=== PATIENT | male | born 2000 | race Caucasian/White ===

== ENCOUNTER → 2023-11-26 | Outpatient (CLI) | payer BC, OTHER ==
[2023-11-26 11:07] LABS: Glucose,Whole Blood 499 mg/dL (70-110)
[2023-11-26 11:26] LABS: Blood Urea Nitrogen 10 mg/dL (9-20)
[2023-11-26 11:28] LABS: African American GFR (CKD) >90 (>60 ml/min/1.73 sqM); Non-African American GFR(CKD) >90 (>60 ml/min/1.73 sqM)
--- NOTE | 2023-11-26 13:38 | CT ---
EXAMINATION TYPE: CT abdomen pelvis w con DATE OF EXAM: 11/26/2023 COMPARISON: None HISTORY: abdominal pain, discomfort and umbilical pain CT DLP: 840.40 mGycm Automated exposure control for dose reduction was used. TECHNIQUE: Helical acquisition of images was performed from the lung bases through the pelvis. CONTRAST: Performed with Oral Contrast and with IV Contrast, patient injected with 80ml mL of Isovue 300. FINDINGS: The lung bases are clear. There is surgical absence of the gallbladder.. There is no biliary ductal dilatation. There is no focal mass or organomegaly involving the liver, pancreas, spleen or adrenal glands. There is no solid renal mass or hydronephrosis and there is homogeneous contrast enhancement of the r enal parenchyma. The caliber the abdominal aorta is normal is no retroperitoneal adenopathy or hemorr humberto. There is marked bowel wall edema and wall thickening involving the colon from the cecum to the rectos igmoid junction consistent with acute colitis or possibly inflammatory bowel disease. Small bowel is unremarkable and there is no evidence of obstruction. There is no free intraperitoneal air or fluid or abdominal abscess. There is no pelvic mass, free fluid, abscess or adenopathy. The osseous structures and soft tissues are intact. IMPRESSION: Marked edema/inflammatory change involving the colon as described above. Findings raise the question of acute colitis or inflammatory bowel disease. There is no bowel obstruction, abdominal or pelvic ab scess, free air or free fluid.
== END | disposition home or self-care (01) ==
LOC: RADCTMAIN 10:26
PROVIDERS: ATTEND Family Medicine
DX: E10.9 Type 1 diabetes mellitus without complications (principal); R10.33 Periumbilical pain; R60.0 Localized edema; Z90.49 Acquired absence of other specified parts of digestive tract
CPT/HCPCS: 82565; 84520; 74177; 36415; Q9967

== ENCOUNTER → 2023-12-03 | Outpatient (CLI) | payer BC, OTHER ==
[2023-12-03 12:55] LABS: Basophils # (A) 0.1 k/uL (0-0.2); Basophils % (A) 1 %; Eosinophils # (A) 0.1 k/uL (0-0.7); Eosinophils % (A) 1 %; HCT 51.1 % (39.0-53.0); HGB 15.1 gm/dL (13.0-17.5); Hypochromasia Marked; Lymphocytes # (A) 1.8 k/uL (1.0-4.8); Lymphocytes % (A) 27 %; MCH 29.3 pg (25.0-35.0); MCHC 29.6 g/dL (31.0-37.0); Mean Platelet Volume 9.1; Monocytes # (A) 0.5 k/uL (0-1.0); Monocytes % (A) 7 %; Neutrophils % (A) 60 %; Platelet Count 231 k/uL (150-450); RBC 5.16 m/uL (4.30-5.90); RDW 13.4 % (11.5-15.5); WBC 6.6 k/uL (4.0-11.0)
[2023-12-03 18:33] LABS: ALT 185 U/L (10-49); AST 129 U/L (14-35); Albumin 3.7 g/dL (3.8-4.9); Albumin/Globulin Ratio 0.82 Ratio (1.60-3.17); Alkaline Phosphatase 683 U/L (41-126); BUN/Creat Ratio 24.67 Ratio (12.00-20.00); Blood Urea Nitrogen 7.4 mg/dL (9.0-27.0); Calcium 9.5 mg/dL (8.7-10.3); Carbon Dioxide 13.1 mmol/L (21.6-31.8); Chloride 102 mmol/L (96-109); Globulin 4.5 g/dL (1.6-3.3); Glucose 270 mg/dL (70-110); Potassium 5.7 mmol/L (3.5-5.5); Sodium 135 mmol/L (135-145); Total Bilirubin 0.3 mg/dL (0.3-1.2); Total Protein 8.2 g/dL (6.2-8.2)
== END | disposition home or self-care (01) ==
LOC: LABWHC1 12:00
PROVIDERS: ATTEND Family Medicine
DX: E10.9 Type 1 diabetes mellitus without complications (principal); R53.83 Other fatigue
CPT/HCPCS: 36415; 80053; 83036; 85025

== ENCOUNTER → 2024-02-08 | Outpatient (CLI) | payer BC, OTHER | END | disposition home or self-care (01) | LOC: LABWHC1 13:49 | PROVIDERS: ATTEND Pediatrics | DX: Z53.9 Procedure and treatment not carried out, unspecified reason (principal) | CPT/HCPCS: 83993 ==